=== PATIENT | female | born 1965 | race Caucasian/White ===

== ENCOUNTER 2016-09-28 05:38 | Emergency (ER) | payer OTHER ==
[~2016-09-28] VITALS: Ht 154.9 cm; Wt 68.6 kg
[2016-09-28 05:42] VITALS: BP 135/88; PULSE 70; RESP 16; O2SAT 100
--- NOTE | 2016-09-28 06:05 | ED.REPORT ---
HPI-Abd Pain F 40 and Over Date of Service Sep 28, 2016 ED Provider: Fausto Chand MD Patient is a 51 year old female who presents to the ED complaining of L sided abdominal pain onset 4 hours ago. Associated symptoms include hematuria (onset three weeks ago), nausea, low back pain, and vomiting. She reports that heat and pressure help relieve her pain. She denies fever, rash, unusual bleeding, bruising, or any other symptoms. She took ibuprofen prior to arrival. She has an appointment with her PCP Friday. Nursing Notes Stated Complaint: KIDNEY ISSUES Chief Complaint: Female Abdominal Pain Nursing Notes Reviewed: Yes ([employer] not reconciled) Allergies: Coded Allergies: meperidine (Verified Allergy, Unknown, 09/28/16) Scheduled PRN Ondansetron ODT (Ondansetron ODT) 8 Mg Tab.rapdis 8 MG PO Q4H PRN PRN For Nausea oxyCODONE-Acetaminophen 5-325 mg (oxyCODONE-Acetaminophen 5-325 mg) 1 Each Tablet 1-2 TAB PO Q6H PRN PRN For Pain General Time Seen by MD: 06:02 Chief Complaint Abdominal pain Hx Obtained From: Patient Arrived By: Walk-in Sudden in Onset?: Yes Onset Occurred: 1 - 4 hours ago Symptom Duration: Since onset Similar Sx Previous: Yes Risk Factors )( AAA Risk Stratification No Hypertension, No Smoking Risk factors reviewed Past Medical History Past Medical History History of gestational diabetes Past Surgical History Left breast lumpectomy in 1978 for benign tumor History of melanoma in 1998 status post sympathectomy for hyperhidrosis Status post D&C 2, 2 C-sections, laparoscopy Reports: Hysterectomy Smoking History Never Smoker Social History Drug Use: Denies drug use Ambulatory Status Independent Review of Systems Constitutional: Denies: Fever GI: Reports: Abdominal pain, Nausea, Vomiting Female: Reports: Hematuria Musculoskeletal: Reports: Back pain Complete sys rev & neg: except as marked. Hematologic: Denies Bleeding, Denies Bruising Skin: Denies Rash Physical Exam Vital Signs Vital Signs (First) Date Time Temp Pulse Resp B/P Pulse Ox O2 Delivery O2 Flow Rate FiO2 09/28/16 05:42 36.2 70 16 135/88 100 09/28/16 09:59 Room Air Initial VS: Reviewed, Vital signs normal Head / Eyes: Atraumatic, Normocephalic Neck: Full range of motion Skin: Warm, Dry Neurologic: Alert, Oriented, Nonfocal Psychiatric: Mood/affect normal, Behavior normal, Normal thought content General/Constitutional: Awake, Alert, Well appearing, Well developed Respiratory / Chest: Atraumatic, Breath sounds NL, Breath sounds = bilat, No respiratory distress Cardiovascular: Heart rate NL, Regular rhythm, Heart sounds NL, No gallop, No murmurs, No rubs Abdomen: Atraumatic, Soft Back: Inspection NL Interpretation & Diagnostics CT KUB: IMPRESSION: Mildly obstructive mid left ureteral calculus measuring 2-3 mm. Additional bilateral less than 5 mm nephrolithiasis. Incidental right hepatic cyst. Dictated by: Drew Coleman MD. on 09/28/2016 at 9:34 Approved by: Drew Coleman M.D. on 09/28/2016 at 9:34 Lab Results Interpretation Result Diagram: 09/28/16 0605 09/28/16 0605 Test 09/28/16 06:05 White Blood Count 7.2th/mm3 (3.8-10.1) Red Blood Count 4.90mil/mm3 (3.90-5.20) Hemoglobin 14.1g/dL (12.0-15.6) Hematocrit 42.5% (35.0-46.0) Mean Corpuscular Volume 86.7fL (81-100) Mean Corpuscular Hemoglobin 28.8pg (27.0-35.0) Mean Corpuscular Hemoglobin Concent 33.2% (32.0-37.0) Red Cell Distribution Width 13.5% (12.3-15.4) Platelet Count 222bil/L (150-400) Neutrophils (%) (Auto) 53.4% (40-74) Lymphocytes (%) (Auto) 31.8% (14-46) Monocytes (%) (Auto) 9.5% (4-12) Eosinophils (%) (Auto) 5.1% (0-5) Basophils (%) (Auto) 0.1% (0-3) Urine Color Bloody (YELLOW) Urine Appearance Turbid (CLEAR,HAZY) Urine pH 6.0 (5.0-8.0) Urine Specific [place] 1.024 (1.003-1.035) Urine Protein 100mg/dL (NEG,TRACE) Urine Glucose (UA) Negativemg/dL (NEGATIVE) Urine Ketones Negativemg/dL (NEGATIVE) Urine Occult Blood Large (NEGATIVE) Urine Nitrite Negative (NEGATIVE) Urine Bilirubin Negative (NEGATIVE) Urine Urobilinogen Normalmg/dL (NORMAL) Urine Leukocyte Esterase Negative (NEGATIVE) Urine RBC Packed/hpf (0-2) Urine WBC 0-5/hpf (0-5) Urine Epithelial Cells None/hpf (NONE-MOD) Urine Crystals None seen (NONE SEEN) Urine Bacteria None/hpf (NONE-FEW) Urine Hyaline Casts None/lpf (NONE) Urine Granular Casts None seen (NONE SEEN) Urine Waxy Casts None seen (NONE SEEN) Urine Red Blood Cell Casts None seen (NONE SEEN) Urine White Blood Cell Casts None seen (NONE SEEN) Urine Mucus None seen (None Seen) Urine Trichomonas None seen (NONE SEEN) Urine Yeast None (NONE SEEN) Urinalysis Comment None Urine Culture Reflexed Not indicated Sodium Level 138mEq/L (134-144) Potassium Level 4.8mEq/L (3.5-5.2) Chloride Level 103mEq/L (97-108) Carbon Dioxide Level 24mmol/L (18-29) Blood Urea Nitrogen 25mg/dL (6-24) Creatinine 0.52mg/dL (0.57-1.00) Estimat Glomerular Filtration Rate 178mL/min (>59) Glucose Level 93mg/dL (60-99) Calcium Level 8.6mg/dL (8.5-10.1) Total Bilirubin 0.4mg/dL (0.0-1.2) Aspartate Amino Transf (AST/SGOT) 23U/L (0-50) Alanine Aminotransferase (ALT/SGPT) 13U/L (0-32) Alkaline Phosphatase 57U/L (25-150) Total Protein 6.9g/dL (6.4-8.4) Albumin 4.1g/dL (3.4-5.0) Lab Results Interpretation: CBC normal CMP normal UA positive hematuria, no markers of infection Re-Eval/Medical Decision Med Decision/Clinical Course This is a 51-year-old female without previous history of kidney stones presents with flank pain and gross hematuria. Interim pain and pain and symptoms, and had planned to see a PCP, developed worsening pain and gross hematuria today- the came into the department as directed. He is not on any antibiotics. She denies any fevers or antecedent symptoms. She denies dysuria. On exam she appears mildly uncomfortable colicky discomfort, but has a soft nontender abdomen. There is gross hematuria present, but UA demonstrated no markers of infection. Blood work is normal normal renal function. CT KUB demonstrates a 3 mm stone left mid ureter. She received IV fluids pain and nausea medicines is much improved with pain and nausea resolved on re-eval. She is already taking ibuprofen and is encouraged to continue to do so. She is being discharged with oxycodone, ondansetron, and a urine strainer. Routine precautions reviewed. Patient is discharged in much improved condition. Source of Hx: Old records Re-Evaluation/Progress : Time of Eval: 09:39 )( Re-Eval Abdomen: Soft Re-Evaluation/Progress Note: Updated patient on imaging results. Consultation : Referral / Consult Name: Drew Coleman MD Call Returned at: 09:31 Note: Discussed imaging results. Differential Diagnosis: Positive: Urolithiasis, Negative: Abdominal aortic aneurysm, Acute abdominal pain, Acute coronary syndrome, Appendicitis, Bladder outlet obstruct, Cervicitis, Cholangitis, Cholecystitis, Contusion abdominal wall, Ectopic , Endometriosis, Esophageal rupture, Gun shot wound abdomen, Peritonitis, Porphyria, Postop complication, Pyelonephritis, Sexually transmit disease Counseled Regarding: Diagnosis, Lab results Discharge & Departure Primary Impression: Kidney stone Additional Impression: Gross hematuria Referrals: Pina Cortés PA-C (PCP) (Family) copies to: Pina Cortés PA-C, Matthew F MD Sep 28, 2016 06:05 JOSE RODRÍGUEZ Sep 28, 2016 06:14
[2016-09-28] MEDS ORDERED: Ondansetron 2 mg/mL 2 mL Inj IVPUSH ONE (06:15)
[2016-09-28] MEDS: HYDROmorphone 0.5 mg/0.5 mL iSecure Syringe IVPUSH PRN ×3 (06:25→08:45)
[2016-09-28 06:42] LABS: BASOPHILS % (AUTO) 0.1 % (0-3); EOSINOPHILS % (AUTO) 5.1 % (0-5); MONOCYTES % (AUTO) 9.5 % (4-12); Mean Corpuscular Hemoglobin 28.8 pg (27.0-35.0); Mean Corpuscular Volume 86.7 fL (81-100); NEUTROPHILS % (AUTO) 53.4 % (40-74); Platelet Count 222 bil/L (150-400)
[2016-09-28 07:23] LABS: APPEARANCE,URINE TURBID (CLEAR,HAZY); COLOR,URINE BLOODY (YELLOW); OCCULT BLOOD,URINE LARGE (NEGATIVE); UROBILINOGEN,URINE NORMAL (NORMAL)
--- NOTE | 2016-09-28 09:36 | DRSVH ---
PROCEDURE: CT KUB ([id number]) INDICATIONS: Flank pain, hematuria TECHNIQUE: Noncontrast 5 mm thick sections acquired from the diaphragms to the symphysis. 5 mm thick coronal an d sagittal reformats were then performed. For radiation dose reduction, the following was used: aut omated exposure control, adjustment of mA and/or kV according to patient size. COMPARISON: None. FINDINGS: Image quality: Excellent. Lung bases: Lung bases are clear. Heart size is normal. Urinary system: Bilateral nephrolithiasis, with multiple 1-2 millimeter calculi. No perinephric stran ding. Mild left hydronephrosis. There is a 2-3 mm mid left ureteral calculus on image 48. Mild left h ydroureter. Bladder is partially decompressed otherwise unremarkable Other solid organs: Liver and spleen are normal in size. Presumed incidental right hepatic cyst mary suring 1.2 cm. Gallbladder unremarkable. Pancreas is normal in contours. No adrenal nodules. Peritoneum and bowel: Unenhanced bowel loops demonstrate normal wall thickness and caliber. No free fluid or air. Normal appendix Nodes and vessels: No retroperitoneal or mesenteric adenopathy by size criteria. Aorta and inferior vena cava are normal in caliber. Abdominal wall: No ventral hernias. Pelvis: No free pelvic fluid. No inguinal hernias or adenopathy. Bones: No suspicious bony lesions. No vertebral body compression fractures. IMPRESSION: Mildly obstructive mid left ureteral calculus measuring 2-3 mm. Additional bilateral less than 5 mm nephrolithiasis. Incidental right hepatic cyst. Dictated by: Drew Coleman MD. on 09/28/2016 at 9:34 Approved by: Drew Coleman M.D. on 09/28/2016 at 9:34
[2016-09-28] MEDS ORDERED: ONDA8TAB10 PO (09:46)
[2016-09-28] MEDS ORDERED: OXYC1TAB24 PO (09:46)
[2016-09-28 09:59] VITALS: BP 115/49; PULSE 61; RESP 16; O2SAT 98
[2016-10-21] MEDS ORDERED: TAMS0.4C98 PO (12:25)
[2016-10-21] MEDS ORDERED: HYDR-3740 PO (12:25)
[2016-10-21] MEDS ORDERED: ALBU6.7H INH (12:25)
== END 2016-09-28 09:59 ==
LOC: SED 05:38
DX: N20.1 Calculus of ureter (principal); R31.0 Gross hematuria; Z88.8 Allergy status to other drugs, medicaments and biological substances
CPT/HCPCS: 36415; 74176; 80053; 81000; 85025; 96374; 96375; 96376; 99285; J1170; J2405

== ENCOUNTER 2016-10-24 04:56 | Emergency (ER) | payer OTHER ==
[~2016-10-24] VITALS: Ht 154.9 cm; Wt 68.2 kg
[2016-10-24 04:56] VITALS: BP 171/89; PULSE 62; RESP 16; O2SAT 95
[~2016-10-24 04:56] MED LIST: ALBU6.7H INH; HYDR-3740 PO; ONDA8TAB10 PO; TAMS0.4C98 PO
--- NOTE | 2016-10-24 05:00 | ED.REPORT ---
HPI-General Illness Date of Service Oct 24, 2016 ED Provider: Selvin Sharp MD Patient is a 51 year old female with known kidney stone who is scheduled ureteroscopy for basket removal of stone this morning presents to the ED via EMS after she awoke with severe left sided flank pain this morning. Patient reports ongoing flank pain for the past 3 weeks since she was diagnosed with a kidney stone, however her pain this morning is more severe and higher up on her back than her usual pain. She reports associated light headedness this morning, as if she was going to lose consciousness. Patient also admits to nausea but denies vomiting. She denies chest pain, abdominal pain, or fever. Patient was seen in the ED on 09/28/2016 for flank pain and was found to have a 2-3mm mildly obstructing left ureteral stone on CT KUB. Patient admits that she ran out of her prescribed hydrocodone last night. She was given 30mg Toradol, 8mg Zofran, and 50mg Fentanyl by EMS enroute. Patient was reportedly screaming in pain when EMS arrived to her home. Her urologist is Dr. Robert. Nursing Notes Stated Complaint: FLANK PAIN Chief Complaint: Back Pain or Injury Nursing Notes Reviewed: Yes Allergies: Coded Allergies: meperidine (Verified Allergy, Unknown, 10/24/16) Scheduled Tamsulosin (Flomax) 0.4 Mg Capsule 0.4 MG PO DAILY Scheduled PRN Albuterol Sulfate (Proventil HFA Inhaler) 6.7 Gm Hfa.aer.ad 2 PUFF INH Q4 PRN PRN For Shortness of Breath Hydrocodone-Acetaminophen 10-325 mg (Hydrocodone-Acetaminophen 10-325 mg) 1 Each Tablet 1 TABLET PO q4-6h PRN PRN For Pain Ondansetron ODT (Ondansetron ODT) 8 Mg Tab.rapdis 8 MG PO Q4H PRN PRN For Nausea General Time Seen by MD: 05:00 Chief Complaint Other (left flank pain) Hx Obtained From: Patient Arrived By: Ambulance Sudden in Onset?: No Onset Occurred: 1 - 4 hours ago Symptom Duration: Since onset Location: : Back (left flank pain) Quality: Painful Severity: Current: Severe Severity: Maximum: Severe Recent Healthcare: No recent hospitalization, Recent doctor visit Similar Sx Previous: Yes Past Medical History Past Medical History kidney stones History of gestational diabetes history of melanoma in 1998 Reports: Asthma Past Surgical History Left breast lumpectomy in 1978 for benign tumor status post sympathectomy for hyperhidrosis Status post D&C 2, laparoscopy bladder sling Reports: , Hysterectomy Smoking History Never Smoker Social History Drug Use: Denies drug use Other Social History: Good social support, , Local resident Ambulatory Status Independent Review of Systems Full Review of Systems Cardiovascular: Denies: Chest pain GI: Reports: Nausea, Denies: Abdominal pain, Vomiting Female: Reports: Flank pain Neurologic: Reports: Lightheaded, Denies: Change LOC Complete sys rev & neg: except as marked. Physical Exam Vital Signs Vital Signs Date Time Temp Pulse Resp B/P Pulse Ox O2 Delivery O2 Flow Rate FiO2 10/24/16 04:56 36.8 62 16 171/89 95 Room Air Initial VS: Reviewed Head / Eyes: Atraumatic, Normocephalic, PERRL ENT: Conjunctiva normal, No scleral icterus Neck: Supple, Full range of motion Respiratory: Breath sounds normal, Clear to auscultation, No respiratory distress Cardiovascular: Regular rate & rhythm, Heart sounds normal, Intact distal pulses Abdomen / GI: Soft, Non-tender, No guarding, No rebound, No distention Extremities: Vascular intact, Neuro intact Skin: Warm, Dry, No cyanosis Neurologic: Alert, Oriented, Nonfocal Psychiatric: Mood/affect normal, Behavior normal, Normal thought content General/Constitutional: Awake, Alert, No acute distress Back: Atraumatic Flank / Spine / Paraspinal: Positive: Flank tender L (mild) Interpretation & Diagnostics Lab Results Interpretation Result Diagram: 10/24/16 0507 10/24/16 0507 Test 10/24/16 05:07 White Blood Count 7.0th/mm3 (3.8-10.1) Red Blood Count 5.00mil/mm3 (3.90-5.20) Hemoglobin 14.2g/dL (12.0-15.6) Hematocrit 43.3% (35.0-46.0) Mean Corpuscular Volume 86.6fL (81-100) Mean Corpuscular Hemoglobin 28.4pg (27.0-35.0) Mean Corpuscular Hemoglobin Concent 32.8% (32.0-37.0) Red Cell Distribution Width 13.2% (12.3-15.4) Platelet Count 206bil/L (150-400) Neutrophils (%) (Auto) 60.9% (40-74) Lymphocytes (%) (Auto) 27.6% (14-46) Monocytes (%) (Auto) 7.4% (4-12) Eosinophils (%) (Auto) 3.9% (0-5) Basophils (%) (Auto) 0.1% (0-3) Prothrombin Time 10.7sec (8.1-12.5) Prothromb Time International Ratio 1.00ratio Sodium Level 141mEq/L (134-144) Potassium Level 3.9mEq/L (3.5-5.2) Chloride Level 104mEq/L (97-108) Carbon Dioxide Level 22mmol/L (18-29) Blood Urea Nitrogen 25mg/dL (6-24) Creatinine 0.66mg/dL (0.57-1.00) Estimat Glomerular Filtration Rate 135mL/min (>59) Glucose Level 139mg/dL (60-99) Calcium Level 8.9mg/dL (8.5-10.1) Total Bilirubin 0.4mg/dL (0.0-1.2) Aspartate Amino Transf (AST/SGOT) 17U/L (0-50) Alanine Aminotransferase (ALT/SGPT) 17U/L (0-32) Alkaline Phosphatase 56U/L (25-150) Total Protein 6.7g/dL (6.4-8.4) Albumin 4.3g/dL (3.4-5.0) Lipase 32U/L (13-60) Re-Eval/Medical Decision Med Decision/Clinical Course 51-year-old with known ureteral stone, scheduled this for a morning for a cystoscopy and attempted basket. She had a sudden uptick in her pain and presents with nausea vomiting and left sided flank and abdomen pain. CT KUB shows some movement of the larger stone with hydronephrosis behind that. She is under control as far as pain and nausea, and is transported now to the outpatient surgery area for her procedure as planned. Discussed with Dr. Robert. Source of Hx: Old records Time of Eval: 05:46 Patient Status: Condition improved Re-Evaluation/Progress Note: Rechecked the patient to discuss her CT scan, official reading is pending. Patient now confirms that her surgery check-in was at 5:45am. Will discharge her to go to surgery. Patient understands and agrees with this plan. All questions were addressed. Counseled Regarding: Diagnosis, Lab results, Need for follow-up, When/why to return to ED Discharge & Departure Primary Impression: Renal colic on left side Additional Impression: Left ureteral calculus Disposition: Home Discharge Condition All VS Reviewed: Yes Condition: Stable Patient Instructions: Renal Colic (ED) Additional Instructions: Go immediately to your procedure appointment. Good luck! Referrals: Pina Cortés PA-C (PCP) Kinza Robert MD Attestation Portions of this note were transcribed by Marybeth Ramires. I, Dr. Sharp personally performed the history, physical exam and medical decision-making; I reviewed and confirmed the accuracy of the information in the transcribed note. Signed by: Maximo Higginbotham, 10/24/2016 0557 copies to: Pina Cortés PA-C; Kinza Robert MD, Christopher W MD Oct 24, 2016 05:00 Marybeth Ramires Oct 24, 2016 05:13
[2016-10-24] MEDS ORDERED: 0.9% Sodium Chloride 1,000 ML IV ONE (05:04)
[2016-10-24] MEDS ORDERED: HYDROmorphone 1 mg/mL Inj IVPUSH ONE (05:05)
[2016-10-24] MEDS ORDERED: Pantoprazole 4 mg/mL 10 mL Inj IVPUSH ONE (05:05)
[2016-10-24] MEDS ORDERED: Ondansetron 8 mg ODT Tablet PO ONE (05:10)
[2016-10-24] MEDS ORDERED: Ondansetron 2 mg/mL 2 mL Inj ONE (05:10)
[2016-10-24 05:20] LABS: BASOPHILS % (AUTO) 0.1 % (0-3); EOSINOPHILS % (AUTO) 3.9 % (0-5); MONOCYTES % (AUTO) 7.4 % (4-12); Mean Corpuscular Hemoglobin 28.4 pg (27.0-35.0); Mean Corpuscular Volume 86.6 fL (81-100); NEUTROPHILS % (AUTO) 60.9 % (40-74); Platelet Count 206 bil/L (150-400)
[2016-10-24] MEDS ORDERED: HYDROmorphone 1 mg/mL Inj IVPUSH PRN (05:50)
--- NOTE | 2016-10-24 09:23 | DRSVH ---
PROCEDURE: CT KUB ([id number]) INDICATIONS: left flank pain TECHNIQUE: Noncontrast 5 mm thick sections acquired from the diaphragms to the symphysis. 5 mm thick coronal an d sagittal reformats were then performed. For radiation dose reduction, the following was used: aut omated exposure control, adjustment of mA and/or kV according to patient size. COMPARISON: [facility], CT, CT KUB, 09/28/2016, 6:23. FINDINGS: Image quality: Excellent. Lung bases: Lung bases are clear. Heart size is normal. Urinary system: Both kidneys are normal in size. Small nonobstructing bilateral renal calculi are pr esent, measuring less than 5 mm diameter, as before. Mild left hydronephrosis and left ureteral dilat ation. Within the distal left ureter, there is an ovoid, 4 mm diameter calculus, with Hounsfield unit s of 280. No right hydronephrosis, nor ureteral dilatation.. Both ureters appear non-dilated through out their expected courses. Urinary bladder is contracted; no calcified bladder stones. Other solid organs: Liver and spleen are normal in size. No change in right hepatic lobe cyst. Gall bladder is within normal limits. Pancreas is normal in contours. No adrenal nodules. Peritoneum and bowel: Unenhanced bowel loops demonstrate normal wall thickness and caliber. No free fluid or air. A small portion of the appendix is seen and is within normal limits. No change in grou ndglass density within the left carmelita-abdominal mesentery. Nodes and vessels: No retroperitoneal or mesenteric adenopathy by size criteria. No change in mildly prominent mesenteric lymph nodes within the left hemiabdomen, measuring less than 10 mm short axis. Aorta and inferior vena cava are normal in caliber. Abdominal wall: No ventral hernias. Pelvis: No free pelvic fluid. No inguinal hernias or adenopathy. Bones: No suspicious bony lesions. No vertebral body compression fractures. IMPRESSION: 1. Distal left renal calculus, associated with mild left hydronephrosis. 2. Small nonobstructing bilateral renal calculi. 3. Probably normal appendix. 4. No change in mesenteric groundglass density in mildly prominent mesenteric lymph nodes, consistent with subacute/chronic mesenteritis. 5. Concordant with preliminary interpretation. Dictated by: Patty Beauchamp M.D. on 10/24/2016 at 9:15 Approved by: Patty Beauchamp M.D. on 10/24/2016 at 9:22
== END 2016-10-24 05:52 | disposition home or self-care (01) ==
LOC: SED 04:56
DX: N23 Unspecified renal colic (principal); N20.1 Calculus of ureter; J45.909 Unspecified asthma, uncomplicated; Z88.8 Allergy status to other drugs, medicaments and biological substances
CPT/HCPCS: 36415; 74176; 80053; 83690; 85025; 85610; 96361; 96374; 96375; 96376; 99285; J1170; J2405; J7030

== ENCOUNTER 2016-10-24 06:33 | Day surgery (SDC) | payer OTHER ==
[2016-10-24] VITALS (9 sets, daily range): BP systolic 115–134; BP diastolic 65–81; PULSE 65–118; RESP 7–16; O2SAT 95–100
[~2016-10-24] VITALS: Ht 154.9 cm; Wt 69.6 kg
[2016-10-24] MEDS: Lactated Ringer's 1,000 ML IV SCH ×2 (06:28→07:28)
[~2016-10-24 06:33] MED LIST changes: +CeFAZolin 2 Gm/50 mL D5W IV Premix IV ONE
[2016-10-24] MEDS ORDERED: Propofol 10,000 mCg/mL 20 mL Inj ONE (06:34)
[2016-10-24] MEDS ORDERED: Dexamethasone 4 mg/mL Inj ONE (06:34)
[2016-10-24] MEDS ORDERED: Ondansetron 2 mg/mL 2 mL Inj ONE (06:34)
[2016-10-24] MEDS ORDERED: Glycopyrrolate 0.2 mg/mL 5 mL Inj ONE (06:34)
[2016-10-24] MEDS ORDERED: fentaNYL-PF 50 mCg/mL 2 mL Inj ONE (06:34)
--- NOTE | 2016-10-24 06:36 | PCM.HPANE ---
Patient Data Surgeon Admitting Provider: Attending Provider:Kinza Robert MD Primary Care Physician:Pina Cortés PA-C Other Provider:Bing Funesingham Anesthesia Reason for Visit Left Ureteral Stone Ht/WT & BMI Height (Feet): 5 Height (Inches): 1 Weight (Kilograms): 69.6 Body Mass Index 28.00 Allergies Coded Allergies: meperidine (Verified Allergy, Unknown, 10/24/16) Past Anesthesia History Anesthesia History: Denies:: Anesthesia Reactions Diabetes History Hx Diabetes?: No Medications Home Meds Incl Beta Nadya: No Active Scripts Ondansetron ODT 8 Mg Tab.rapdis8 Mg PO Q4H PRN For Nausea #20 TABLET Prov:Fausto Chand MD 09/28/16 Reported Medications Tamsulosin (Flomax)0.4 Mg Capsule0.4 Mg PO DAILY Ref 0 10/21/16 Albuterol Sulfate (Proventil HFA Inhaler)6.7 Gm Hfa.aer.ad2 Puff INH Q4 PRN For Shortness of Breath #1 INHALER Ref 0 10/21/16 Hydrocodone-Acetaminophen 10-325 mg 1 Each Tablet1 Tablet PO q4-6h PRN For Pain Ref 0 10/21/16 Discontinued Scripts oxyCODONE-Acetaminophen 5-325 mg 1 Each Tablet1-2 Tab PO Q6H PRN For Pain #20 TABLET Ref 0 Prov:Fausto Chand MD 09/28/16 History History of ENT Problems?: No Other HEENT Pertinent History: finishing up with a cold. Still stuffy nose and some postnasal drip. no other symptoms Hx of Heart Problems?: No Cardiovascular History: Denies:: Congestive Heart Failure Hypertension Hx of Respiratory Problem?: Yes Respiratory History: Positive for:: Asthma Use of Inhalers / NEBS Denies:: Oxygen Administration Tuberculosis Use of C-PAP Machine Hx Neurologic Problems?: No Neurological History: Denies:: CVA Multiple Sclerosis Parkinson's Disease Seizures Hx of GI Problems?: No Hx of Problems?: Yes Genitourinary History: Positive for:: Kidney Stones (left ureteral stone current admission problem) Female Hx: Positive for:: Problems with Breasts? (hx of left lumpectomy) Denies:: Currently Skin History: Denies:: History Skin Disorders? Pressure Ulcers Hx Musculoskeletal Problems?: No Hx of Psycho/Social Problems?: No Hx Surgeries?: Yes (hysterectomy, bladder sling, left lumpectomy, sympathectomy ) Hx Any Other Health Problems?: Yes Other History: Positive for:: Cancer (hx of melanoma) Denies:: Thyroid Disease Hx Diabetes: No Hx Alcohol Use: NoHx Substance Use: No Smoking Status: Never Smoker Have You Smoked inLast 12 mo: No Stop/Bang S-Snoring: Do You Snore Loudly: Yes T-Tired: feel tired, fatigued: Yes P-Blood Pressure: treated: No B- Body Mass Index > 35 kg/m2: No A- Age over 50: Yes N- Neck Large Circumference: No G- Gender Male: No UMAIR Risk Assessment: High Risk, =/>3 Yes UMAIR Category 4 OutPt Procedure: Yes Risk Assessment Category Category 1A: Patient has history of documented sleep apnea, and HAS NOT received any narcotic, sedative or anesthesia administration during this stay. Category 1B: Patient has history of documented sleep apnea, and HAS received any narcotic , sedative or anesthesia administration during this stay Category 2: Patient has SUSPECTED Obstructive Sleep Apnea, and HAS received any narcotic , sedative or anesthesia administration during this stay. Category 3: Patient has SUSPECTED Obstructive Sleep Apnea and HAS NOT received narcotic, sedative or anesthesia administration during this stay. Category 4: Outpatient in Procedural Areas with known sleep apnea or who screen positive for High Risk via the STOP/BANG questionnaire. Additional Information and patient attest to lots of snoring. sleep study done. interpretation missing per patient who claims drs quit and machine she was given did not work. Exam Exam Vital Signs Vital Signs Date Time Temp Pulse Resp B/P Pulse Ox O2 Delivery O2 Flow Rate FiO2 10/24/16 06:17 36.5 65 16 128/81 95 Room Air General Appearance: Alert, Oriented X3, Cooperative, No Acute Distress HEENT/AIRWAY: MP 2 Lungs: Clear to Auscultation, Normal Air Movement Heart: Exam Unremarkable, Regular Rate/Rhythm, No Murmurs/Rubs/Gallops Meds/Labs/Diagnostics Admission Meds Current Medications Lactated Ringer's (Lr) 1,000 ml @ 120 mls/hr Q8H20M IV Last administered on t 06:28; Start 10/24/16 at 05:00; Stop 10/24/16 at 13:19 Plan Impression Patient chart reviewed, patient interviewed and anesthestic plan with risks, benefits, and alternatives discussed, and informed consent obtained. NPO Status: 0130 WATER AND THEN HAD EMESIS ASA Physical Status: ASA2 Mod Systemic Disease Anesthetic Plan: GA Bene/Risks/Altern/Consents: Yes HP Complete Prior to Induction: Yes Aman Hermosillo MD Oct 24, 2016 06:36
[2016-10-24] MEDS ORDERED: Lactated Ringer's 1,000 ML IV SCH (07:47)
[2016-10-24] MEDS ORDERED: Lactated Ringer's 500 ML IV PRN (07:47)
[2016-10-24] MEDS ORDERED: Atropine 0.4 mg/mL Inj IVPUSH PRN (07:50)
[2016-10-24] MEDS ORDERED: fentaNYL-PF 50 mCg/mL 2 mL Inj IVPUSH PRN (07:50)
[2016-10-24] MEDS ORDERED: EPHEDrine Sulfate 50 mg/mL Inj IVPUSH PRN (07:50)
[2016-10-24] MEDS ORDERED: Phenylephrine 10,000 mCg/mL Inj IVPUSH PRN (07:50)
[2016-10-24] MEDS ORDERED: Labetalol 5 mg/mL 4 mL Inj IV PRN (07:50)
[2016-10-24] MEDS ORDERED: hydrALAZINE 20 mg/mL Inj IVPUSH PRN (07:50)
[2016-10-24] MEDS ORDERED: HYDROmorphone 1 mg/mL Inj IVPUSH PRN (07:50)
[2016-10-24] MEDS ORDERED: MetoCLOpramide 5 mg/mL 2 mL Inj IVPUSH PRN (07:50)
[2016-10-24] MEDS ORDERED: Ondansetron 2 mg/mL 2 mL Inj IVPUSH PRN (07:50)
[2016-10-24] MEDS ORDERED: Dexamethasone 4 mg/mL Inj IVPUSH PRN (07:50)
[2016-10-24] MEDS ORDERED: HYDROmorphone 0.5 mg/0.5 mL iSecure Syringe ONE (08:17)
[2016-10-24] MEDS ORDERED: oxyCODONE-Acetamin 5-325 mg Tablet PO PRN (08:20)
--- NOTE | 2016-10-24 08:29 | PCM.ANEP1 ---
Post Anesthesia Phase 1 PACU Phase 1 Assessment Vital Signs Vital Signs Date Time Temp Pulse Resp B/P Pulse Ox O2 Delivery O2 Flow Rate FiO2 10/24/16 08:25 36.3 83 11 130/77 97 Room Air 10/24/16 08:20 82 14 124/67 98 Room Air 10/24/16 08:15 86 15 128/68 97 Room Air 10/24/16 08:10 88 9 129/72 99 Simple Mask 8 10/24/16 08:07 36.2 98 7 134/76 100 Simple Mask 8 10/24/16 06:17 36.5 65 16 128/81 95 Room Air Anesthetic Administered: GA Level of Alertness: Awake, talking DO's with Equal Strength: Yes Pain: No Nausea or Vomiting: No Oxygen Delivery: Simple Mask Lungs: Clear to Auscultation, Normal Air Movement Aman Hermosillo MD Oct 24, 2016 08:29
--- NOTE | 2016-10-24 08:38 | OP ---
[address] [address] OPERATIVE REPORT PATIENT: KURTIS STACY : 1965 MR#: [id number] ADMIT: 10/24/2016 JOB ID: [id number] DATE OF SURGERY: 10/24/2016 SURGEON: Kinza Robert MD. PREOPERATIVE DIAGNOSIS(ES): Left ureteral calculus. POSTOPERATIVE DIAGNOSIS(ES): Left ureteral calculus. PROCEDURE: 1. Cystoscopy. 2. Ureteroscopy. 3. Stone basketing. 4. Stent. ANESTHESIA: General anesthetic. ANESTHESIOLOGIST: Aman Hermosillo MD. DESCRIPTION OF PROCEDURE: Under a general anesthetic, the patient was placed in the lithotomy position. Genitalia prepped and draped in a sterile manner. A 22-Mozambican cystoscope was introduced through a normal urethra. The left ureteral orifice was edematous. A 0.035 Glidewire was advanced to the level of the left renal pelvis. A 15-[place]ozambican balloon dilation catheter was then used to dilate the distal ureter. A 7-Mozambican semi-rigid ureteroscope was then advanced into the ureter. The stone was visualized just outside the intramural ureter. The stone was engaged with a Nitinol tipless basket and withdrawn intact. The ureteroscope was then advanced up to the level of the ureteropelvic junction. No further stones were seen. The second stone seen on the CT KUB clearly has passed. A 6-[place]ozambican 20 cm double-J stent was then advanced over the wire. When it was confirmed to be in good position fluoroscopically, the wire was withdrawn. The patient tolerated the procedure well and left the operating room in good condition.
--- NOTE | 2016-10-24 11:17 | PCM.ANEP2 ---
Post Anesthesia Evaluation ASA/CMS Post Anesthesia VS in Patient's Normal Range?: Yes Resp Stable; Airway Patent?: Yes CV Function & Hydration Stable: Yes Mental Status Recovered?: Yes Pain control Satisfactory?: Yes N/V Control Satisfactory?: Yes Aman Hermosillo MD Oct 24, 2016 11:17
[2016-10-31 06:12] LABS: Stone Color Brown (.)
== END 2016-10-24 23:59 | disposition home or self-care (01) ==
LOC: SAS 06:33
PROVIDERS: ATTEND Urology
DX: N20.1 Calculus of ureter (principal); J45.909 Unspecified asthma, uncomplicated
CPT/HCPCS: 52352; 76000; 82360; C2617; J0690; J1100; J1170; J2250; J2405; J3010; J7120

== ENCOUNTER 2016-10-26 05:34 | Emergency (ER) | payer OTHER ==
[~2016-10-26] VITALS: Ht 154.9 cm; Wt 68.2 kg
[~2016-10-26 05:34] MED LIST changes: -CeFAZolin 2 Gm/50 mL D5W IV Premix IV ONE
[2016-10-26 05:35] VITALS: BP 169/94; PULSE 86; RESP 16; O2SAT 98
--- NOTE | 2016-10-26 06:02 | ED.REPORT ---
HPI-Abd Pain F 40 and Over Date of Service Oct 26, 2016 ED Provider: Dr. Gio Thornton The patient is a 51 year old female who presents to the emergency department complaining of "severe" left flank pain that began 3 weeks ago. She has also experienced nausea, vomiting, fever, chills, increased urination frequency, and hematuria. She had surgery yesterday and reports they removed kidney stones and placed a stent. Dr. Kinza Robert completed her surgery. She is scheduled to have the "string" removed on Friday. Her pain has worsened over night. She is unable to sit still due to the pain. She is currently taking Percocet 5 mg for pain. Nursing Notes Stated Complaint: BACK AND ABDOMINAL PAIN, POST OP 10/24/16 Chief Complaint: Female Abdominal Pain Nursing Notes Reviewed: Yes Allergies: Coded Allergies: meperidine (Verified Allergy, Unknown, 10/26/16) Scheduled Tamsulosin (Flomax) 0.4 Mg Capsule 0.4 MG PO DAILY Scheduled PRN Albuterol Sulfate (Proventil HFA Inhaler) 6.7 Gm Hfa.aer.ad 2 PUFF INH Q4 PRN PRN For Shortness of Breath Hydrocodone-Acetaminophen 10-325 mg (Hydrocodone-Acetaminophen 10-325 mg) 1 Each Tablet 1 TABLET PO q4-6h PRN PRN For Pain Ibuprofen (Ibuprofen) 800 Mg Tablet 800 MG PO TID PRN PRN For Pain Ondansetron ODT (Ondansetron ODT) 8 Mg Tab.rapdis 8 MG PO Q4H PRN PRN For Nausea oxyCODONE-Acetaminophen 10-325 mg (oxyCODONE-Acetaminophen 10-325 mg) 1 Each Tablet 1-2 TABLET PO Q4H PRN PRN For Pain General Time Seen by MD: 06:02 Chief Complaint Flank pain left Hx Obtained From: Patient, Spouse Arrived By: Walk-in Sudden in Onset?: Yes Onset Occurred: More than a week ago... Symptom Duration: Since onset Progression since Onset: Constant, Gradually worsening Location: : Flank left: LLQ Quality: Painful Severity: Current: Severe Severity: Maximum: Severe Associated with: Reports: Chills, Fever, Hematuria, Nausea, Vomiting Pertinent Negative: Pt denies other symptoms Recent Healthcare: No recent hospitalization, Recent doctor visit, Previous surgery Similar Sx Previous: Yes Past Medical History Past Medical History kidney stones History of gestational diabetes History of melanoma in 1998 Reports: Asthma Past Surgical History Left breast lumpectomy in 1978 for benign tumor status post sympathectomy for hyperhidrosis Status post D&C 2, laparoscopy bladder sling Kidney stone removal with stent placement Reports: , Hysterectomy Smoking History Never Smoker Social History Drug Use: Denies drug use Other Social History: Good social support, , Local resident Ambulatory Status Independent Review of Systems Constitutional: Reports: Chills, Fever GI: Reports: Abdominal pain, Nausea, Vomiting Female: Reports: Flank pain, Hematuria, Urinary frequency, Urination increased Complete sys rev & neg: except as marked. Physical Exam Vital Signs Vital Signs (First) Date Time Temp Pulse Resp B/P Pulse Ox O2 Delivery O2 Flow Rate FiO2 10/26/16 05:35 37 86 16 169/94 98 Room Air Initial VS: Reviewed Head / Eyes: Atraumatic, Normocephalic, PERRL ENT: Mucous membranes moist, Conjunctiva normal, No scleral icterus Neck: Supple, Non-tender, Full range of motion Lymphatic: No lymphadenopathy Extremities: Vascular intact, Neuro intact, No swelling, No tenderness Skin: Warm, Dry, No cyanosis Neurologic: Alert, Oriented, Nonfocal Psychiatric: Mood/affect normal, Behavior normal, Normal thought content General/Constitutional: Awake, Alert, Cooperative Appearance / Presentation: Positive: In pain, Uncomfortable Respiratory / Chest: Atraumatic, Breath sounds NL, Breath sounds = bilat, No respiratory distress, No rales, No rhonchi, No wheezing, No stridor Cardiovascular: Heart rate NL, Regular rhythm, Heart sounds NL, No gallop, No murmurs, No rubs, Peripheral circulation NL Abdomen: Atraumatic, Soft, Non-tender, McBurney's non-tender, No guarding, No rebound, BS normoactive, No distention, No hernia, No palpable mass, No pulsatile mass Back: Full range of motion, No midline vertebral tend Flank / Spine / Paraspinal: Positive: Flank tender bilateral Interpretation & Diagnostics Lab Results Interpretation Result Diagram: 10/26/16 0615 10/26/16 0615 Test 10/26/16 06:15 10/26/16 06:26 White Blood Count 10.5th/mm3 (3.8-10.1) Red Blood Count 4.42mil/mm3 (3.90-5.20) Hemoglobin 12.5g/dL (12.0-15.6) Hematocrit 38.8% (35.0-46.0) Mean Corpuscular Volume 87.8fL (81-100) Mean Corpuscular Hemoglobin 28.3pg (27.0-35.0) Mean Corpuscular Hemoglobin Concent 32.2% (32.0-37.0) Red Cell Distribution Width 13.2% (12.3-15.4) Platelet Count 178bil/L (150-400) Neutrophils (%) (Auto) 64.2% (40-74) Lymphocytes (%) (Auto) 23.9% (14-46) Monocytes (%) (Auto) 8.6% (4-12) Eosinophils (%) (Auto) 3.0% (0-5) Basophils (%) (Auto) 0.1% (0-3) Sodium Level 139mEq/L (134-144) Potassium Level 3.8mEq/L (3.5-5.2) Chloride Level 102mEq/L (97-108) Carbon Dioxide Level 24mmol/L (18-29) Blood Urea Nitrogen 17mg/dL (6-24) Creatinine 0.56mg/dL (0.57-1.00) Estimat Glomerular Filtration Rate 163mL/min (>59) Glucose Level 101mg/dL (60-99) Calcium Level 8.7mg/dL (8.5-10.1) Magnesium Level 1.8mg/dL (1.6-2.6) Total Bilirubin 0.4mg/dL (0.0-1.2) Aspartate Amino Transf (AST/SGOT) 12U/L (0-50) Alanine Aminotransferase (ALT/SGPT) 12U/L (0-32) Alkaline Phosphatase 52U/L (25-150) Total Protein 6.6g/dL (6.4-8.4) Albumin 4.3g/dL (3.4-5.0) Urine Color [place] (YELLOW) Urine Appearance Cloudy (CLEAR,HAZY) Urine pH 7.5 (5.0-8.0) Urine Specific [place] 1.014 (1.003-1.035) Urine Protein Color interferencemg/dL Urine Glucose (UA) Negativemg/dL (NEGATIVE) Urine Ketones Color interferencemg/dL Urine Occult Blood Large (NEGATIVE) Urine Nitrite Color interference Urine Bilirubin Color interference Urine Urobilinogen Color interferencemg/dL Urine Leukocyte Esterase Color interference Urine RBC Packed/hpf (0-2) Urine WBC 0-5/hpf (0-5) Urine Epithelial Cells Occasional/hpf (NONE-MOD) Urine Crystals None seen (NONE SEEN) Urine Bacteria Few/hpf (NONE-FEW) Urine Hyaline Casts None/lpf (NONE) Urine Granular Casts None seen (NONE SEEN) Urine Waxy Casts None seen (NONE SEEN) Urine Red Blood Cell Casts None seen (NONE SEEN) Urine White Blood Cell Casts None seen (NONE SEEN) Urine Mucus None seen (None Seen) Urine Trichomonas None seen (NONE SEEN) Urine Yeast None (NONE SEEN) Urinalysis Comment None Urine Culture Reflexed Not indicated CT Abd / Pelvis Interpretation CONCLUSION: Left ureteral stent in place with mild left hydronephrosis. Bilateral nephrolithiasis. Colonic diverticulosis. Dictated by Camille Hurley M.D. Study type: Abdominal CT no contrast Interpretation / Wet Read by: Interpret - Radiologist Re-Eval/Medical Decision Med Decision/Clinical Course No obvious complication or infection related to the procedure. This is likely expected postoperative pain. Higher dose of oxycodone prescribed as well as ibuprofen. Follow-up and return precautions given Source of Hx: Old records, Family Re-Evaluation/Progress #1: Time of Eval: 07:28 Re-Evaluation/Progress Note: The patient is still complaining of pain. She would like more pain medication. Re-Evaluation/Progress #2: Time of Eval: 07:46 Re-Evaluation/Progress Note: Rechecked the patient. She is feeling better. Discussed results, diagnosis, and plan for discharge. All questions were addressed. Counseled Regarding: Diagnosis, Lab results, Need for follow-up, When/why to return to ED Discharge & Departure Primary Impression: Left flank pain Additional Impressions: History of kidney stones History of ureter stent Disposition: Home Discharge Condition All VS Reviewed: Yes Condition: Stable Patient Instructions: Renal Colic (ED) Additional Instructions: Thank you for entrusting us with your care today. I am sorry you are dealing with this. Your abdominal CT and labs today are reassuring. It appears that your stent is functioning properly and in the correct place. Keep your followup appointment with the urologist on Friday. Use Ibuprofen and oxycodone 10/325 as prescribed. Make sure to drink plenty of fluids. Please return to the emergency department if you are unable to urinate, or if you develop increased pain, uncontrollable vomiting, fever, or any other new or concerning symptoms. Referrals: Pina Cortés PA-C (PCP) Kinza Robert MD Attestation Portions of this note were transcribed by Whitney Caal. I, Dr. Thornton personally performed the history, physical exam and medical decision-making; I reviewed and confirmed the accuracy of the information in the transcribed note. Signed by: Maximo Angel, 10/25/2016 and 0800. copies to: Pina Cortés PA-C; Kinza Robert MD, Timothy S DO Oct 26, 2016 06:02 Whitney Caal Oct 26, 2016 06:14
[2016-10-26] MEDS ORDERED: Ondansetron 2 mg/mL 2 mL Inj IVPUSH PRN (06:15)
[2016-10-26 06:33] LABS: BASOPHILS % (AUTO) 0.1 % (0-3); MONOCYTES % (AUTO) 8.6 % (4-12); Mean Corpuscular Hemoglobin 28.3 pg (27.0-35.0); Mean Corpuscular Volume 87.8 fL (81-100); NEUTROPHILS % (AUTO) 64.2 % (40-74); Platelet Count 178 bil/L (150-400)
[2016-10-26 06:44] LABS: APPEARANCE,URINE CLOUDY (CLEAR,HAZY); COLOR,URINE ORANGE (YELLOW); PH,URINE 7.5 (5.0-8.0)
[2016-10-26 06:45] LABS: OCCULT BLOOD,URINE LARGE (NEGATIVE)
[2016-10-26 06:46] LABS: UROBILINOGEN,URINE COLOR INTERFERENCE mg/dL (NORMAL)
[2016-10-26 07:20] LABS: Magnesium 1.8 mg/dL (1.6-2.6)
[2016-10-26] MEDS ORDERED: OXYC-466 PO (07:54)
[2016-10-26] MEDS ORDERED: IBUP800T28 PO (07:54)
[2016-10-26 08:05] VITALS: BP 116/68; PULSE 66; RESP 16; O2SAT 94
--- NOTE | 2016-10-26 08:35 | DRSVH ---
PROCEDURE: CT KUB ([id number]) INDICATIONS: pain post ureteral stent placement TECHNIQUE: Noncontrast 5 mm thick sections acquired from the diaphragms to the symphysis. 5 mm thick coronal an d sagittal reformats were then performed. For radiation dose reduction, the following was used: aut omated exposure control, adjustment of mA and/or kV according to patient size. COMPARISON: [facility], CT, CT KUB, 09/28/2016, 6:23. [facility], CT, CT KUB , 10/24/2016, 5:35. FINDINGS: Image quality: Excellent. Lung bases: Lung bases are clear. Heart size is normal. Urinary system: Both kidneys are normal in size. Multiple, small, approximately 1-2 mm in diameter r ight renal stones are noted. Multiple, small, approximately 2-3 mm diameter left renal stones are not ed. Left ureteral stent is in place interval since the prior examination. Minimal left-sided hydronep hrosis is noted.. Both ureters appear non-dilated throughout their expected courses. Bladder wall t hickness is normal; no calcified bladder stones. Small amount of air is noted in the urinary bladder possibly related to recent ureteral stent placement procedure, however correlation with urinalysis is recommended to exclude other Sible etiologies including infection.. Other solid organs: Liver and spleen are normal in size. Hypoattenuating lesion in the right lobe li nii is stable compared to prior examinations and likely represents a cyst. Gallbladder is within norm al limits. Pancreas is normal in contours. No adrenal nodules. Peritoneum and bowel: Unenhanced bowel loops demonstrate normal wall thickness and caliber. Scattere d diverticuli noted in the colon without evidence of diverticulitis. No free fluid or air. The append ix is normal. Nodes and vessels: No retroperitoneal or mesenteric adenopathy by size criteria. Aorta and inferior vena cava are normal in caliber. Abdominal wall: No ventral hernias. Pelvis: No free pelvic fluid. No inguinal hernias or adenopathy. Bones: No suspicious bony lesions. No vertebral body compression fractures. IMPRESSION: 1. Status post placement of left ureteral stent. There is minimal left-sided hydronephrosis. 2. Small bilateral renal stones. 3. Colonic diverticulosis without evidence of diverticulitis. Dictated by: Kinza Ribera MD, PhD on 10/26/2016 at 8:28 Approved by: Kinza Ribera MD, PhD on 10/26/2016 at 8:33
== END 2016-10-26 08:06 | disposition home or self-care (01) ==
LOC: SED 05:34
DX: R10.9 Unspecified abdominal pain (principal); J45.909 Unspecified asthma, uncomplicated; Z87.442 Personal history of urinary calculi; Z96.0 Presence of urogenital implants; Z79.51 Long term (current) use of inhaled steroids; Z88.8 Allergy status to other drugs, medicaments and biological substances
CPT/HCPCS: 36415; 74176; 80053; 81000; 83735; 85025; 96374; 96375; 96376; 99285; J2270; J2405